=== PATIENT | male | born 1995 | race Caucasian/White ===

== ENCOUNTER 2017-03-13 17:35 | Emergency (ER) | payer OTHER ==
[~2017-03-13] VITALS: Ht 180.3 cm; Wt 106.7 kg
[~2017-03-13 17:35] MED LIST: TYL120S; VIC PO
[2017-03-13 19:31] VITALS: BP 123/72
== END 2017-03-13 19:31 | disposition home or self-care (01) ==
LOC: ED 17:35
DX: R19.7 Diarrhea, unspecified (principal); B34.9 Viral infection, unspecified; F41.9 Anxiety disorder, unspecified; Z90.89 Acquired absence of other organs; Z79.899 Other long term (current) drug therapy
CPT/HCPCS: J1885

== ENCOUNTER 2019-09-06 18:35 | Emergency (ER) | payer OTHER ==
[~2019-09-06] VITALS: Ht 180.3 cm; Wt 113.4 kg
[2019-09-06 19:55] VITALS: Ht 180.3 cm; Wt 113.4 kg
[2019-09-06 22:46] LABS: UA SPECIFIC GRAVITY 1.025 (1.005-1.035); microscopic required? YES; urine erythrocyte 2+ (NEGATIVE)
[2019-09-06 23:16] VITALS: BP 158/88
== END 2019-09-06 23:16 | disposition home or self-care (01) ==
LOC: ED 18:35
DX: N34.2 Other urethritis (principal); J02.8 Acute pharyngitis due to other specified organisms; J45.909 Unspecified asthma, uncomplicated; F31.9 Bipolar disorder, unspecified; F41.9 Anxiety disorder, unspecified; Z90.89 Acquired absence of other organs
CPT/HCPCS: 87491; 87591; J0696